=== PATIENT | female | born 1970 | race American Indian/Alaskan Native ===

== ENCOUNTER 2018-12-19 06:19 | Inpatient (IN) | payer OTHER, MEDICARE ==
[2018-12-19 06:23] VITALS: BMI 25.6
--- NOTE | 2018-12-19 06:26 | ED PDOC ---
Psych Transfer Clearance - Clearance Statement Clearance Statement: Reviewed vital signs, lab results and transfer papers. Patient clinically stable for psychiatric admission. Medically cleared by Dr. Noriega
[2018-12-19] MEDS ORDERED: DiphenhydrAMINE 50 mg/ml Inj IM PRN (07:03)
[2018-12-19] MEDS ORDERED: Magnesium Hydroxide Susp 30 ml UD PO PRN (07:03)
[2018-12-19] MEDS ORDERED: Alum-Mag Hydrox-Simethicone Susp (30 mL) PO PRN (07:03)
--- NOTE | 2018-12-19 11:26 | PCM.PSYCH ---
Initial Psychiatric Evaluation - Initial Psychiatric Evaluation Chief Complaint (in patient's own words): pt was feeling overwhelmed related to overall health issues including need for oxygen supplementation, admits although family has not mentioned that she has become a burden for them ( and two children) pt was feeling like she wanted to take her life. pt was being treated by psychiatrist in [facility] (?affiliated with [facility]). reports has been taking medications and has not missed. denies acute changes in health. reports positive rapport with and children. pt although dose not offer a specific plan for taking her life she cannot contract for safety. pt remains on 1 to 1 for safety. Patient's Reaction to Hospitalization: pt signed for transfer to [facility] from [facility] History of Present Illness and Precipitating Events: chronic health issues reported concerns about becoming a burden to others because of her health (although she denies being told or hearing this from others). Current Medications: Active Medications Generic Name Dose Route Start Last Admin Trade Name Freq PRN Reason Stop Dose Admin Acetaminophen 650 mg 12/19/18 07:03 Tylenol 325mg Tab PO Q4 PRN Pain, moderate (4-7) Al Hydrox/Mg Hydrox/Simethicone 30 ml 12/19/18 07:03 Maalox Plus 30 Ml PO Q4 PRN Dyspepsia Diphenhydramine HCl 50 mg 12/19/18 07:03 Benadryl IM Q6 PRN Extrapyramidal S/S Unable PO Diphenhydramine HCl 50 mg 12/19/18 07:03 Benadryl PO Q6 PRN Extrapyramidal Symptoms Diphenhydramine HCl 50 mg 12/19/18 07:03 Benadryl PO HS PRN Sleep Haloperidol 5 mg 12/19/18 07:03 Haldol PO Q4 PRN Agitation Haloperidol Lactate 5 mg 12/19/18 07:03 Haldol IM Q4 PRN Agitation, Unable to Take PO Lorazepam 2 mg 12/19/18 10:00 Ativan IM Q6 PAULINO Lorazepam 1 mg 12/19/18 07:03 Ativan PO Q6 PRN Anxiety/Agitation Magnesium Hydroxide 30 ml 12/19/18 07:03 Milk Of Magnesia PO HS PRN Constipation Past Psychiatric History - Past Psychiatric History Prior Professional Help: [facility], opd, [facility] Nature of Treatment: inpt opd pmd History of Abuse: denies History of ETOH/Drug Use: denies History of Family Illness: defers Pertinent Medical Hx (Current Medical&Sleep Prob, Allergies): Allergies Allergy/AdvReac Type Severity Reaction Status Date / Time No Known Allergies Allergy Verified 12/19/18 06:22 Review of Systems - Respiratory Additional comments: chronic sob, supplemental O2 via nasal cannula - Psychiatric Psychiatric: Abnormal Sleep Pattern, Depression, Hopelessness, Suicidal Ideation Additional comments: does not contract for safety no specific plan Mental Status Examination - Personal Presentation Personal Presentation: Looks older than stated age - Affect Affect: Constricted, Depressed - Motor Activity Motor Activity: Calm, Psychomotor Retardation - Reliability in Providing Information Reliability in Providing Information: Fair - Speech Speech: Organized - Mood Additional comments: some accessory muscle use noted with speech - Formal Thought Process Formal Thought Process: No Impairment - Obsessions/Compulsions Obsessions: No Compulsions: No - Cognitive Functions Orientation: Person, Place, Situation, Time Sensorium: Alert Judgement: Imparied, as evidence by: Other - Risk Risk: Suicidal, Diminished functioning - Strength & Assets Inventory Strength & Assets Inventory: Intelligence, Family support (chronic health issues), Cooperative DSM 5 DX - DSM 5 DSM 5 Diagnosis: 

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
[2018-12-19] MEDS: Budesonide 0.5 mg/2 ml Inhal Susp UD IH SCH ×2 (16:11→21:25)
[2018-12-19] MEDS: Albuterol 0.042% Inhal Sol (1.25 mg/3 mL) UD IH SCH ×2 (16:11→21:24)
--- NOTE | 2018-12-19 17:50 | PCM.BM ---
<Marbella Billy - Last Filed: 12/19/18 17:53> Treatment Plan Problems - Problems identified on initial assessmt hopelessness/helplessness Date Initiated: 12/19/18 Time Initiated: 17:48 Date resolved: 12/26/18 Assessment reference: NA Status: Active Priority: 1 activity intolerance Date Initiated: 12/19/18 Time Initiated: 17:49 Date resolved: 12/26/18 Assessment reference: NA Status: Active feeling of worthlessness Date Initiated: 12/19/18 Time Initiated: 17:50 Date resolved: 12/26/18 alteration in resp status Date Initiated: 12/19/18 Time Initiated: 17:52 Assessment reference: NA Status: Monitor Treatment assets and liabiliti Patient Assests: adapts well, cooperative, negotiates basic needs Patient Liabilities: poor support system, medical problems - Milieu Protocol Maintain good personal hygiene: every shift Encourage regular showers, every shift Remind patient to perform daily oral care, every shift Assist patient to p erform ADL's Maintain personal safety: every shift Educate patient to report safety concerns to staff, every shift Monitor environment for contraband/sharps Medication safety: Monitor for expected outcome, potential side effects: every shift, Assess barriers to learning: every shift, Assess readiness for medication education: every shift Milieu Narrative: admission per attending md vital signs and clinical assessment per unit protocol and per clinical status 1 to 1 for safety hospitalist consult prns per unit protocol falls precautions physical therapy evaluation and treatment dietary consult discharge planning in progress Discharge/Continuing Care - Treatment Team Participation Patient/Family/SO Statement: admission per attending md vital signs and clinical assessment per unit protocol and per clinical status 1 to 1 for safety hospitalist consult prns per unit protocol falls precautions physical therapy evaluation and treatment dietary consult discharge planning in progress <April Fowler - Last Filed: 12/21/18 10:21> - Diagnosis (1) Major depressive disorder Status: Acute Interventions: Medication management, Individual and group therapy, Psychoeducation 12/21/18 10:21 <Jo Ann Lipscomb - Last Filed: 12/21/18 15:25> Family Contact Family involvement: Family/SO is involved Family contact: Patient agrees to contact, Family has been contacted by patient, Telephone contact initiated by staff Family contact name: Jose Gonzáles - ([phone]) Family contacted how many times per week?: 2 - Outside Agency Nirav Lagos MD Care involvment: Information-sharing Agency contact number: [phone] - Goals for Treatment Patient goals for treatment: Pt will improve mood. Pt will be free of suicide ideation and thoughts. Pt will comply with prescribed medications. Pt will attend clinical and activity groups. Pt will improve coping skills to better co pe with daily stressors. Pt will report less depression and anxiety. Pt will comply with medical treatment. Discharge/Continuing Care - Education Needs Education Needs: Family Medication, Family Diagnosis/Disease Process, Family Community resources, Family Aftercare Safety Plan, Patient Medication, Patient Diagnosis/Disease Process, Patient Coping Skills, Patient Community resources, Patient Uses of Medical Equipment, Patient Health Practices/Safety, Patient Personal Hygiene/Grooming, Patient Aftercare Safety Plan - Discharge Discharge Criteria: Tolerates medication w/o severe side effects, Free of Suicidal thoughts, Free of paranoid thoughts, Normal sleep pattern, Ability to care for self, Reduction of target symptoms Discharge to:: Home, With Family - Additional Comments 12/21/18 15:14 Pt seen and discussed in team meeting. Reason for hospitalization reviewed and discussed. Pt reported being hospitalized due to worsening depression and suicide ideation in the context of several stressors. Pt reported having marital issues and several medical issues contributing to her increased depression. Pt also reported medication non-compliance with her Celexa. Pt reported that she is linked to Dr. Demond MD at [facility] for [facility]. Pt reported her depression began in July 2018 following medical issues and complications. Pt's social and medical issues reviewed and discussed. Pt's medications reviewed and discussed. Pt's tx plan reviewed and discussed. Pt provided clinical writer with verbal and written to contact her , Jose Gonzáles ([phone]) to confirm that he is caring for pt's twins, Paula Johnson. Pt will remain on a 1:1 for suicide ideation. Pt unable to contract for safety. During team meeting, pt was observed trying to turn off her oxygen. RN reported that she will be contacting pt's pharmacy in [place] to confirm medications. SW will continue to follow case. - Treatment Team Participation Discussed with Family/SO: No Was Patient/Family/SO present at Treatment Team Meeting: Yes
[2018-12-19 20:36] LABS: SQUAMOUS EPITHIAL 2 /hpf (0-5); URINE BACTERIA RARE (<OCC); URINE BILIRUBIN NEGATIVE (NEGATIVE); URINE BLOOD NEGATIVE (NEGATIVE); URINE CLARITY CLEAR (Clear); URINE COLOR STRAW (YELLOW); URINE GLUCOSE (UA) NEG (NEGATIVE); URINE LEUKOCYTE ESTERASE NEG Leu/uL (Negative); URINE PROTEIN NEGATIVE (NEGATIVE); URINE UROBILINOGEN 0.2-1.0 mg/dL (0.2-1.0)
[2018-12-20 07:26] LABS: BASO % 0.2 % (0.0-2.0); EOS % 0.2 % (0.0-4.0); HEMOGLOBIN 11.1 g/dL (12.0-16.0); LYMPH # 1.2 K/uL (1.0-4.3); LYMPH % 14.4 % (20.0-40.0); MEAN CELL VOLUME 81.3 fl (81.0-99.0); MEAN CORPUSCULAR HEMOGLOBIN 25.9 pg (27.0-31.0); MEAN CORPUSCULAR HGB CONC 31.8 g/dL (33.0-37.0); MEAN PLATELET VOLUME 9.2 fl (7.2-11.7); MONO # 0.4 K/uL (0.0-0.8); MONO % 4.1 % (0.0-10.0); NEUT # 6.9 K/uL (1.8-7.0); NEUT % 81.1 % (50.0-75.0); RBC 4.29 Mil/uL (3.80-5.20); RED CELL DISTRIBUTION WIDTH 17.1 % (11.5-14.5); WHITE BLOOD COUNT 8.5 K/uL (4.8-10.8)
[2018-12-20] MEDS: Budesonide 0.5 mg/2 ml Inhal Susp UD IH SCH ×3 (07:42→19:21)
[2018-12-20] MEDS: Albuterol 0.042% Inhal Sol (1.25 mg/3 mL) UD IH SCH ×4 (07:42→19:21)
[2018-12-20 08:03] LABS: ALBUMIN 3.6 g/dL (3.5-5.0); ALT/SGPT 43 U/L (9-52); AST/SGOT 34 U/L (14-36); BLOOD UREA NITROGEN 10 mg/dl (7-17); CALCIUM 8.8 mg/dL (8.4-10.2); GFR NON-AFRICAN AMERICAN > 60; HDL CHOLESTEROL 31 MG/DL (30-70)
[2018-12-20 08:13] LABS: LDL CHOLESTEROL 118 mg/dL (0-129)
[2018-12-20] MEDS: Pantoprazole 40 mg EC Tab PO SCH (08:44)
[2018-12-20 20:16] LABS: RAPID PLASMA REAGIN REACTIVE (NONREACTIVE)
[2018-12-20] MEDS: Benzocaine/Menthol (Cepacol) Lozenge PO PRN (22:10)
[2018-12-21] MEDS: Albuterol-Ipratrop 3 mg / 0.5 (3 ml) UD INH PRN (03:26)
[2018-12-21 05:59] VITALS: O2SAT 97
[2018-12-21] MEDS: Benzocaine/Menthol (Cepacol) Lozenge PO PRN ×2 (08:51→17:53)
[2018-12-21] MEDS: Pantoprazole 40 mg EC Tab PO SCH (08:52)
[2018-12-21] MEDS: Albuterol 0.042% Inhal Sol (1.25 mg/3 mL) UD IH SCH ×3 (09:39→20:46)
[2018-12-21] MEDS: Budesonide 0.5 mg/2 ml Inhal Susp UD IH SCH ×2 (09:44→20:46)
--- NOTE | 2018-12-21 10:22 | PCM.PYCHPN ---
Psychiatric Progress Note - Psychiatric Progress Note Patient seen today, length of contact: Pt evaluated, case discussed w/ team, chart reviewed Patient Chief Complaint: Depression Problems Identified/Issues Discussed: Patient continues to feel depressed, anxious and discussed her distress over her many medical issues and also problems in her marriage. +Poor sleep/appetite. +Hopelessness. She reports that she was having suicidal thoughts yesterday, but states that she has less suicidal thoughts today. She reports that was taking Celexa, but stopped taking it 1 week ago. She is agreeable to restarting Celexa at this time. Medication Change: Yes (Restart Celexa) Medical Record Reviewed: Yes Consults ordered or reviewed: Medicine consult Mental Status Examination - Cognitive Function Orientation: Person, Place, Situation, Time Memory: Intact Attention: WNL Concentration: WNL Association: WNL Fund of Knowledge: [facility] Decription of patient's judgement and insights: Fair I/J - Mood Mood: Depressed, Anxious - Affect Affect: Constricted, Depressed - Speech Speech: Soft - Formal Thought Process Formal Thought Process: No Impairment Psychotic Thoughts and Behaviors: No AH/VH; reports some mild suspiciousness but does not seem to have overt paranoia - Suicidal Ideation Suicidal Ideation: Yes Plan: Intermittent SI - Homicidal Ideation Homicidal Ideation: No Goal/Treatment Plan - Goal/Treatment Plan Need for Continued Stay: Remain at risks for inpatient hospitalization, Severe depression anxiety, Discharge may exacerbated symptoms Progress Toward Problem(s) and Goals/Treatment Plan: Major Depressive Disorder -Restart Celexa -Continue 1:1 for safety -Medicine consult -Individual and group therapy -Psychoeducation -Disposition planning Estimated Date of D/C: 12/25/18 - Smoking Cessation Smoking Cessation Initiated: No Reason for not providing: Not indicated
[2018-12-22] MEDS: Benzocaine/Menthol (Cepacol) Lozenge PO PRN (00:07)
[2018-12-22] MEDS: Albuterol-Ipratrop 3 mg / 0.5 (3 ml) UD INH PRN ×2 (05:46→08:04)
[2018-12-22] MEDS: Albuterol 0.042% Inhal Sol (1.25 mg/3 mL) UD IH SCH ×3 (08:00→19:32)
[2018-12-22] MEDS: Budesonide 0.5 mg/2 ml Inhal Susp UD IH SCH ×2 (08:04→19:32)
[2018-12-22] MEDS: Pantoprazole 40 mg EC Tab PO SCH (09:11)
--- NOTE | 2018-12-22 12:10 | PCM.PYCHPN ---
Psychiatric Progress Note - Psychiatric Progress Note Patient seen today, length of contact: Pt evaluated, case discussed w/ team, chart reviewed Patient Chief Complaint: Depression Problems Identified/Issues Discussed: Patient was acutely agitated last night. She was anxious, labile, yelling "help" and "don't do this to me", paranoid, aggressive and required PRN medidcation for agitation. Patient continues to be bizarre and paranoid. Medication Change: Yes (Start Risperdal) Medical Record Reviewed: Yes Consults ordered or reviewed: Medicine consult Mental Status Examination - Cognitive Function Orientation: Person, Place, Situation, Time Memory: Intact Attention: WNL Concentration: WNL Association: WNL Fund of Knowledge: [facility] Decription of patient's judgement and insights: Fair I/J - Mood Mood: Depressed, Anxious - Affect Affect: Constricted, Depressed - Speech Speech: Soft - Formal Thought Process Formal Thought Process: Paranoia Psychotic Thoughts and Behaviors: No AH/VH; +Paranoia - Suicidal Ideation Suicidal Ideation: Yes - Homicidal Ideation Homicidal Ideation: No Goal/Treatment Plan - Goal/Treatment Plan Need for Continued Stay: Remain at risks for inpatient hospitalization, Severe depression anxiety, Discharge may exacerbated symptoms Progress Toward Problem(s) and Goals/Treatment Plan: Major Depressive Disorder w/ Psychotic Features -Continue Celexa -Start Risperdal -Continue 1:1 for safety -Medicine consult -Individual and group therapy -Psychoeducation -Disposition planning
[2018-12-22] MEDS: Risperidone M tab 1 MG PO SCH (21:09)
[2018-12-23] MEDS: Albuterol-Ipratrop 3 mg / 0.5 (3 ml) UD INH PRN ×2 (05:12→17:55)
[2018-12-23] MEDS: Pantoprazole 40 mg EC Tab PO SCH (08:31)
[2018-12-23] MEDS: Risperidone M tab 1 MG PO SCH ×2 (08:31→21:02)
[2018-12-23] MEDS: Budesonide 0.5 mg/2 ml Inhal Susp UD IH SCH ×3 (08:48→20:44)
[2018-12-23] MEDS: Albuterol 0.042% Inhal Sol (1.25 mg/3 mL) UD IH SCH ×3 (08:48→20:44)
--- NOTE | 2018-12-23 12:19 | PCM.PYCHPN ---
Psychiatric Progress Note - Psychiatric Progress Note Patient seen today, length of contact: Pt evaluated, case discussed w/ team, chart reviewed Patient Chief Complaint: Depression Problems Identified/Issues Discussed: Patient continues to report feeling depressed. She is guarded and paranoid. She gives vague answers, but does not feel like she is currently safe. She denies acute AH/VH/SI/HI. She is oddly related at times and observed starting blankly by staff. Medication Change: Yes (Increase Risperda) Medical Record Reviewed: Yes Consults ordered or reviewed: Medicine consult Mental Status Examination - Cognitive Function Orientation: Person, Place, Situation, Time Memory: Intact Attention: WNL Concentration: WNL Association: WNL Fund of Knowledge: [facility] Decription of patient's judgement and insights: Fair I/J - Mood Mood: Depressed, Anxious - Affect Affect: Constricted, Depressed - Speech Speech: Soft - Formal Thought Process Formal Thought Process: Paranoia Psychotic Thoughts and Behaviors: No AH/VH; +Paranoia - Suicidal Ideation Suicidal Ideation: No - Homicidal Ideation Homicidal Ideation: No Goal/Treatment Plan - Goal/Treatment Plan Need for Continued Stay: Remain at risks for inpatient hospitalization, Severe depression anxiety, Discharge may exacerbated symptoms Progress Toward Problem(s) and Goals/Treatment Plan: Major Depressive Disorder w/ Psychotic Features -Continue Celexa -Increase Risperdal -Continue 1:1 for safety -Medicine consult -Individual and group therapy -Psychoeducation -Disposition planning
[2018-12-23] MEDS: Benzocaine/Menthol (Cepacol) Lozenge PO PRN (17:17)
--- NOTE | 2018-12-23 18:27 | CP.PCM.PN ---
Subjective - Date & Time of Evaluation Date of Evaluation: 12/23/18 Time of Evaluation: 18:20 - Subjective Subjective: Patient was seen and examined. RPR was reactive 1:4 and FTA-ABS was positive. Patient confirmed that she was treated with 12 shots of Penicillin in late . She denied any complaint. Objective - Vital Signs/Intake and Output Vital Signs (last 24 hours): Temp Pulse Resp BP Pulse Ox 97.6 F 86 20 131/67 97 12/23/18 17:07 12/23/18 17:07 12/23/18 17:07 12/23/18 17:07 12/21/18 05:58 - Medications Medications: Current Medications Acetaminophen (Tylenol 325mg Tab) 650 mg PO Q4 PRN PRN Reason: Pain, moderate (4-7) Al Hydrox/Mg Hydrox/Simethicone (Maalox Plus 30 Ml) 30 ml PO Q4 PRN PRN Reason: Dyspepsia Albuterol Sulfate (Albuterol 0.042% Inhal Gloria (1.25mg/3ml) Ud) 1.25 mg IH RTID [facility] Last Admin: 12/23/18 13:35 Dose: 1.25 mg Albuterol/Ipratropium (Duoneb 3 Mg/0.5 Mg (3 Ml) Ud) 3 ml INH RQ4 PRN PRN Reason: Shortness of Breath Last Admin: 12/23/18 17:55 Dose: 3 ml Benzocaine/Menthol (Cepacol Sore Throat) 1 gutierrez PO Q2 PRN PRN Reason: Sore Throat Last Admin: 12/23/18 17:17 Dose: 1 gutierrez Budesonide (Pulmicort Respules) 0.5 mg IH RBID [facility] Last Admin: 12/23/18 17:59 Dose: 0.5 mg Citalopram Hydrobromide (Celexa) 20 mg PO DAILY [facility] Last Admin: 12/23/18 08:31 Dose: 20 mg Diphenhydramine HCl (Benadryl) 50 mg IM Q6 PRN PRN Reason: Extrapyramidal S/S Unable PO Last Admin: 12/22/18 01:40 Dose: 50 mg Diphenhydramine HCl (Benadryl) 50 mg PO Q6 PRN PRN Reason: Extrapyramidal Symptoms Diphenhydramine HCl (Benadryl) 50 mg PO HS PRN PRN Reason: Sleep Haloperidol (Haldol) 5 mg PO Q4 PRN PRN Reason: Agitation Haloperidol Lactate (Haldol) 5 mg IM Q4 PRN PRN Reason: Agitation, Unable to Take PO Last Admin: 12/22/18 01:40 Dose: 5 mg Lorazepam (Ativan) 1 mg PO Q6 PRN PRN Reason: Anxiety/Agitation Magnesium Hydroxide (Milk Of Magnesia) 30 ml PO HS PRN PRN Reason: Constipation Metformin HCl (Glucophage) 500 mg PO BID [facility] Last Admin: 12/23/18 17:16 Dose: 500 mg Pantoprazole Sodium (Protonix Ec Tab) 40 mg PO DAILY [facility] Last Admin: 12/23/18 08:31 Dose: 40 mg Prednisone (Prednisone Tab) 10 mg PO BID [facility] Last Admin: 12/23/18 17:16 Dose: 10 mg Risperidone (Risperdal M-Tab) 1 mg PO Q12 [facility] Last Admin: 12/23/18 08:31 Dose: 1 mg - Labs Labs: 12/20/18 06:48 12/20/18 06:48 Assessment and Plan - Assessment and Plan (Free Text) Assessment: Patient was completely treated for syphilis in . No further treatment necessary. Discussed case with Dr Grajeda.
[2018-12-24] MEDS: Albuterol 0.042% Inhal Sol (1.25 mg/3 mL) UD IH SCH ×3 (09:27→20:19)
[2018-12-24] MEDS: Budesonide 0.5 mg/2 ml Inhal Susp UD IH SCH ×2 (09:27→20:19)
[2018-12-24] MEDS: Risperidone M tab 1 MG PO SCH ×2 (09:40→21:24)
[2018-12-24] MEDS: Pantoprazole 40 mg EC Tab PO SCH (09:41)
--- NOTE | 2018-12-24 10:56 | PCM.PYCHPN ---
Psychiatric Progress Note - Psychiatric Progress Note Patient seen today, length of contact: Pt evaluated, case discussed w/ team, chart reviewed Patient Chief Complaint: Depression Problems Identified/Issues Discussed: Patient continues to report feeling depressed, hopeless, with continued suicidal ideation with plan to overdose on pills. She is vague and guarded at times. When asked if she would try to harm herself on the unit, she states that she does not know because she does not know how she could kill herself here. She continues to report that she does not know if she is safe in the hospital. Medication Change: No Medical Record Reviewed: Yes Consults ordered or reviewed: Medicine consult Mental Status Examination - Cognitive Function Orientation: Person, Place, Situation, Time Memory: Intact Attention: WNL Concentration: WNL Association: WNL Fund of Knowledge: [facility] Decription of patient's judgement and insights: Fair I/J - Mood Mood: Depressed, Anxious - Affect Affect: Constricted, Depressed - Speech Speech: Soft - Formal Thought Process Formal Thought Process: Paranoia Psychotic Thoughts and Behaviors: No AH/VH; +Paranoia - Suicidal Ideation Suicidal Ideation: Yes - Homicidal Ideation Homicidal Ideation: No Goal/Treatment Plan - Goal/Treatment Plan Need for Continued Stay: Remain at risks for inpatient hospitalization, Severe depression anxiety, Discharge may exacerbated symptoms Progress Toward Problem(s) and Goals/Treatment Plan: Major Depressive Disorder w/ Psychotic Features -Continue Celexa -Continue Risperdal -Continue 1:1 for safety -Medicine consult -Individual and group therapy -Psychoeducation -Disposition planning Estimated Date of D/C: 12/30/18
[2018-12-24] MEDS: Benzocaine/Menthol (Cepacol) Lozenge PO PRN (21:24)
[2018-12-25] MEDS: Albuterol-Ipratrop 3 mg / 0.5 (3 ml) UD INH PRN ×2 (00:59→20:15)
[2018-12-25] MEDS: Pantoprazole 40 mg EC Tab PO SCH (08:35)
[2018-12-25] MEDS: Risperidone M tab 1 MG PO SCH ×2 (08:36→21:27)
--- NOTE | 2018-12-25 08:52 | PCM.PYCHPN ---
Psychiatric Progress Note - Psychiatric Progress Note Patient seen today, length of contact: Pt evaluated, case discussed w/ team, chart reviewed Patient Chief Complaint: Depression Problems Identified/Issues Discussed: Patient continues to report feeling depressed and anxious. She denies acute suicidal ideation/plan/intent and is able to contract for safety at this time. She denies acute concerns that she is not safe; denies acute paranoia. We discussed continued titration of Celexa back to her previous dose. Medication Change: Yes (Increase Celexa) Medical Record Reviewed: Yes Consults ordered or reviewed: Medicine consult Mental Status Examination - Cognitive Function Orientation: Person, Place, Situation, Time Memory: Intact Attention: WNL Concentration: WNL Association: WNL Fund of Knowledge: [facility] Decription of patient's judgement and insights: Fair I/J - Mood Mood: Depressed, Anxious - Affect Affect: Constricted, Depressed - Speech Speech: Soft - Formal Thought Process Formal Thought Process: Circumstantial Psychotic Thoughts and Behaviors: No AH/VH; Denies acute paranoia, but patient continues to be guarded - Suicidal Ideation Suicidal Ideation: No - Homicidal Ideation Homicidal Ideation: No Goal/Treatment Plan - Goal/Treatment Plan Need for Continued Stay: Remain at risks for inpatient hospitalization, Severe depression anxiety, Discharge may exacerbated symptoms Progress Toward Problem(s) and Goals/Treatment Plan: Major Depressive Disorder w/ Psychotic Features -Continue Celexa -Continue Risperdal -Discontinue 1:1 -Medicine consult -Individual and group therapy -Psychoeducation -Disposition planning Estimated Date of D/C: 12/30/18
[2018-12-25] MEDS: Albuterol 0.042% Inhal Sol (1.25 mg/3 mL) UD IH SCH ×3 (09:57→20:14)
[2018-12-25] MEDS: Budesonide 0.5 mg/2 ml Inhal Susp UD IH SCH (09:58)
[2018-12-26] MEDS: Albuterol-Ipratrop 3 mg / 0.5 (3 ml) UD INH PRN (02:31)
[2018-12-26] MEDS: Benzocaine/Menthol (Cepacol) Lozenge PO PRN (04:13)
[2018-12-26] MEDS: Risperidone M tab 1 MG PO SCH ×2 (08:26→21:03)
[2018-12-26] MEDS: guaiFENesin-DM 600-30 mg ER Tab PO SCH ×2 (08:26→16:52)
[2018-12-26] MEDS: Pantoprazole 40 mg EC Tab PO SCH (08:27)
[2018-12-26] MEDS: Albuterol 0.042% Inhal Sol (1.25 mg/3 mL) UD IH SCH ×3 (09:03→20:44)
[2018-12-26] MEDS: Budesonide 0.5 mg/2 ml Inhal Susp UD IH SCH ×3 (09:03→20:44)
--- NOTE | 2018-12-26 14:21 | PCM.PYCHPN ---
Psychiatric Progress Note - Psychiatric Progress Note Patient seen today, length of contact: Pt evaluated, case discussed w/ team, chart reviewed Patient Chief Complaint: I still feel depressed Problems Identified/Issues Discussed: pt seen in bed presenting with depressed mood and affect, no reported side effects with the increase in celexa, denied suicidal or homicidal ideation, denied perceptual disturbances Medication Change: Yes (Increase Celexa) Medical Record Reviewed: Yes Mental Status Examination - Cognitive Function Orientation: Person, Place, Situation, Time Memory: Intact Attention: WNL Concentration: WNL Association: WNL Fund of Knowledge: WNL - Mood Mood: Depressed, Anxious - Affect Affect: Constricted, Depressed - Speech Speech: Soft - Formal Thought Process Formal Thought Process: Circumstantial - Suicidal Ideation Suicidal Ideation: No - Homicidal Ideation Homicidal Ideation: No Goal/Treatment Plan - Goal/Treatment Plan Need for Continued Stay: Remain at risks for inpatient hospitalization, Severe depression anxiety, Discharge may exacerbated symptoms Progress Toward Problem(s) and Goals/Treatment Plan: continue current management Estimated Date of D/C: 12/30/18
[2018-12-27] MEDS: Albuterol 0.042% Inhal Sol (1.25 mg/3 mL) UD IH SCH ×3 (08:30→19:42)
[2018-12-27] MEDS: Budesonide 0.5 mg/2 ml Inhal Susp UD IH SCH ×2 (08:30→19:42)
[2018-12-27] MEDS: guaiFENesin-DM 600-30 mg ER Tab PO SCH ×2 (09:06→17:41)
[2018-12-27] MEDS: Insulin Regular 100 units/ml SC SCH ×2 (09:06→17:42)
[2018-12-27] MEDS: Pantoprazole 40 mg EC Tab PO SCH (09:07)
[2018-12-27] MEDS: Risperidone M tab 1 MG PO SCH ×2 (09:08→21:41)
--- NOTE | 2018-12-27 11:40 | PCM.PYCHPN ---
Psychiatric Progress Note - Psychiatric Progress Note Patient seen today, length of contact: Pt evaluated, case discussed w/ team, chart reviewed Patient Chief Complaint: I did not sleep well Problems Identified/Issues Discussed: pt evaluated seen in bed reported early insomnia last night presenting with depressed mood and affect, no reported side effects with the increase in celexa, denied suicidal or homicidal ideation, denied perceptual disturbances Medication Change: No Medical Record Reviewed: Yes Mental Status Examination - Cognitive Function Orientation: Person, Place, Situation, Time Memory: Intact Attention: WNL Concentration: WNL Association: WNL Fund of Knowledge: WNL - Mood Mood: Depressed, Anxious - Affect Affect: Constricted, Depressed - Speech Speech: Soft - Formal Thought Process Formal Thought Process: Circumstantial - Suicidal Ideation Suicidal Ideation: No - Homicidal Ideation Homicidal Ideation: No Goal/Treatment Plan - Goal/Treatment Plan Need for Continued Stay: Remain at risks for inpatient hospitalization, Severe depression anxiety, Discharge may exacerbated symptoms Progress Toward Problem(s) and Goals/Treatment Plan: continue current management Estimated Date of D/C: 12/30/18
[2018-12-27] MEDS: Benzocaine/Menthol (Cepacol) Lozenge PO PRN (22:35)
[2018-12-28] MEDS: Albuterol-Ipratrop 3 mg / 0.5 (3 ml) UD INH PRN (07:42)
[2018-12-28] MEDS: Budesonide 0.5 mg/2 ml Inhal Susp UD IH SCH ×2 (07:42→19:40)
[2018-12-28] MEDS: Albuterol 0.042% Inhal Sol (1.25 mg/3 mL) UD IH SCH ×3 (07:45→19:40)
[2018-12-28] MEDS: Insulin Regular 100 units/ml SC SCH ×3 (09:01→17:24)
[2018-12-28] MEDS: Risperidone M tab 1 MG PO SCH ×2 (09:08→21:28)
[2018-12-28] MEDS: Pantoprazole 40 mg EC Tab PO SCH (09:08)
--- NOTE | 2018-12-28 12:12 | PCM.PYCHPN ---
Psychiatric Progress Note - Psychiatric Progress Note Patient seen today, length of contact: Pt evaluated, case discussed w/ team, chart reviewed Patient Chief Complaint: I still have trouble sleeping Problems Identified/Issues Discussed: pt evaluated seen in bed continues to report depressed mood and early insomnia, constricted depressed affect, p at current time declining any further increase in medications, denied suicidal or homicidal ideation, denied perceptual disturbances Medication Change: No Medical Record Reviewed: Yes Mental Status Examination - Cognitive Function Orientation: Person, Place, Situation, Time Memory: Intact Attention: WNL Concentration: WNL Association: WNL Fund of Knowledge: WNL - Mood Mood: Depressed, Anxious - Affect Affect: Constricted, Depressed - Speech Speech: Soft - Formal Thought Process Formal Thought Process: Circumstantial - Suicidal Ideation Suicidal Ideation: No - Homicidal Ideation Homicidal Ideation: No Goal/Treatment Plan - Goal/Treatment Plan Need for Continued Stay: Remain at risks for inpatient hospitalization, Severe depression anxiety, Discharge may exacerbated symptoms Progress Toward Problem(s) and Goals/Treatment Plan: continue current management Estimated Date of D/C: 12/30/18
[2018-12-29] MEDS: Risperidone M tab 1 MG PO SCH ×2 (08:43→21:00)
[2018-12-29] MEDS: Insulin Regular 100 units/ml SC SCH ×2 (08:44→17:55)
[2018-12-29] MEDS: Pantoprazole 40 mg EC Tab PO SCH (08:45)
[2018-12-29] MEDS: Budesonide 0.5 mg/2 ml Inhal Susp UD IH SCH ×2 (09:59→21:07)
[2018-12-29] MEDS: Albuterol 0.042% Inhal Sol (1.25 mg/3 mL) UD IH SCH ×3 (09:59→21:07)
--- NOTE | 2018-12-29 11:01 | PCM.PYCHPN ---
Psychiatric Progress Note - Psychiatric Progress Note Patient seen today, length of contact: Pt evaluated, case discussed w/ team, chart reviewed Patient Chief Complaint: Depression Problems Identified/Issues Discussed: Patient continues to report feeling depressed, but states that her mood has been improving. She denies acute psychosis/paranoia/SI/HI. We discussed coping strategies to deal with stress and depression. No adverse effects to medications reported. Medication Change: No Medical Record Reviewed: Yes Consults ordered or reviewed: Medicine consult Mental Status Examination - Cognitive Function Orientation: Person, Place, Situation, Time Memory: Intact Attention: WNL Concentration: WNL Association: WNL Fund of Knowledge: [facility] Decription of patient's judgement and insights: Fair I/J - Mood Mood: Depressed - Affect Affect: Constricted - Speech Speech: Soft - Formal Thought Process Formal Thought Process: No Impairment Psychotic Thoughts and Behaviors: NO AH/VH/paranoia - Suicidal Ideation Suicidal Ideation: No - Homicidal Ideation Homicidal Ideation: No Goal/Treatment Plan - Goal/Treatment Plan Need for Continued Stay: Severe depression anxiety Progress Toward Problem(s) and Goals/Treatment Plan: Major Depressive Disorder w/ Psychotic Features -Continue Celexa -Continue Risperdal -Disposition planning- likely discharge to home tomorrow as she is improving clinically Estimated Date of D/C: 12/30/18
[2018-12-30 05:52] VITALS: BP 114/68; PULSE 73; RESP 18; TEMP 98.4
[2018-12-30] MEDS: Albuterol 0.042% Inhal Sol (1.25 mg/3 mL) UD IH SCH (07:55)
--- NOTE | 2018-12-30 08:22 | PCM.BM ---
Treatment Plan Problems - Problems identified on initial assessmt hopelessness/helplessness Date Initiated: 12/19/18 Time Initiated: 17:48 Date resolved: 12/26/18 Assessment reference: NA Status: Active Priority: 1 activity intolerance Date Initiated: 12/19/18 Time Initiated: 17:49 Date resolved: 12/26/18 Assessment reference: NA Status: Active feeling of worthlessness Date Initiated: 12/19/18 Time Initiated: 17:50 Date resolved: 12/26/18 alteration in resp status Date Initiated: 12/19/18 Time Initiated: 17:52 Assessment reference: NA Status: Monitor Treatment assets and liabiliti Patient Assests: adapts well, cooperative, negotiates basic needs Patient Liabilities: poor support system, medical problems - Milieu Protocol Maintain good personal hygiene: every shift Encourage regular showers, every shift Remind patient to perform daily oral care, every shift Assist patient to perform ADL's Maintain personal safety: every shift Educate patient to report safety concerns to staff, every shift Monitor environment for contraband/sharps Medication safety: Monitor for expected outcome, potential side effects: every shift, Assess barriers to learning: every shift, Assess readiness for medication education: every shift Milieu Narrative: Major Depressive Disorder w/ Psychotic Features -Continue Celexa -Continue Risperdal -Disposition planning- likely discharge to home tomorrow as she is improving clinically Family Contact Family involvement: Family/SO is involved Family contact: Patient agrees to contact, Family has been contacted by patient, Telephone contact initiated by staff Family contact name: Jose Gonzáles (spouse) Family contact comment: Please refer to SW Progress Note dated 12/21/2018 for collateral information. - Outside Agency Nirav Lagos MD Care involvment: Information-sharing Agency contact number: - Goals for Treatment Patient goals for treatment: Pt will improve mood. Pt will be free of suicide ideation and thoughts. Pt will comply with prescribed medications. Pt will attend clinical and activity groups. Pt will improve coping skills to better cope with daily stressors. Pt will report less depression and anxiety. Pt will comply with medical treatment. Discharge/Continuing Care - Education Needs Education Needs: Family Medication, Family Diagnosis/Disease Process, Family Community resources, Family Aftercare Safety Plan, Patient Medication, Patient Diagnosis/Disease Process, Patient Coping Skills, Patient Community resources, Patient Uses of Medical Equipment, Patient Health Practices/Safety, Patient Personal Hygiene/Grooming, Patient Aftercare Safety Plan - Discharge Discharge Criteria: Tolerates medication w/o severe side effects, Free of Suicidal thoughts, Free of paranoid thoughts, Normal sleep pattern, Ability to care for self, Reduction of target symptoms Discharge to:: Home, With Family - Additional Comments 12/21/18 15:14 Pt seen and discussed in team meeting. Reason for hospitalization reviewed and discussed. Pt reported being hospitalized due to worsening depression and suicide ideation in the context of several stressors. Pt reported having marital issues and several medical issues contributing to her increased depression. Pt also reported medication non-compliance with her Celexa. Pt reported that she is linked to Dr. Demond MD at [facility] for psychiatric services. Pt reported her depression began in July 2018 following medical issues and complications. Pt's social and medical issues reviewed and discussed. Pt's medications reviewed and discussed. Pt's tx plan reviewed and discussed. Pt provided continuity writer with verbal and written to contact her , Jose Gonzáles ) to confirm that he is caring for pt's twins, Paula Johnson. Pt will remain on a 1:1 for suicide ideation. Pt unable to contract for safety. During team meeting, pt was observed trying to turn off her oxygen. RN reported that she will be contacting pt's pharmacy in [place] to confirm medications. SW will continue to follow case. - Treatment Team Participation Patient/Family/SO Statement: Major Depressive Disorder w/ Psychotic Features -Continue Celexa -Continue Risperdal -Disposition planning- likely discharge to home tomorrow as she is improving clinically Discussed with Family/SO: No Was Patient/Family/SO present at Treatment Team Meeting: Yes Treatment Plan Review - Problem hopelessness/helplessness Time Initiated: 17:48 activity intolerance Time Initiated: 17:49 feeling of worthlessness Time Initiated: 17:50 alteration in resp status Time Initiated: 17:52 - Discharge / Continuing Care Discharge to:: Home Behavioral Health Services: Outpatient therapy, Home health care Health Needs: Follow up care/test, Doctor appointments, Medications/Rx (Pt seen in treatment team on 12/29/18 for review form 4405 until 1043. Pt presented to team as neat and dressed in hospital gowns with oxygen tank. Pt presented as minimally cooperative and irritable. Pt reported that she was having difficulty "settling down." Pt's medical conditions were discussed and pt reported that she does have a nebulizer at home and does receive oxygen deliveries. Pt asked for help at home and staff reported that she can be set up for home care. 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 Pt reported she resides in [place]. Psychiatric medications of Lexapro, Seroquel and Risperdal were reviewed. Team discussed discharge for 12/30 and pt offered no complaints at this time. Pt reported she does not have family that can pick her up so [facility] will have to provide transportation. Pt's mood and affect were neutral. Pt's voice was soft and slow. Pt's thought process was logical, but minimally goal directed. Pt denied SI/HI, AVT hallucinations and no perceptual disturbances were noted. Pt made appropriate eye contact. Pt is oriented X4. Pt's psychomotor movements were slowed. )
[2018-12-30] MEDS: Insulin Regular 100 units/ml SC SCH (08:35)
[2018-12-30] MEDS: Pantoprazole 40 mg EC Tab PO SCH (08:36)
[2018-12-30] MEDS: Risperidone M tab 1 MG PO SCH (08:38)
--- NOTE | 2018-12-30 09:14 | PCM.PYCHDC ---
Mental Status Examination - Mental Status Examination Orientation: Person, Place, Situation, Time Memory: Intact Mood: Neutral Affect: Broad Speech: Appropriate Attention: WNL Concentration: WNL Association: WNL Fund of Knowledge: WNL Formal Thought Process: No Impairment Description of patient's judgement and insight: Fair I/J Psychotic Thoughts and Behaviors: NO AH/VH/paranoia Suicidal Ideation: No Current Homicidal Ideation?: No Discharge Summary - Discharge Note Reason for Hospitalization: 48 yo female w/ h/o MDD w/ psychosis, admitted w/ worsening depression, anxiety, suicidal ideation and paranoia. Laboratory Data: Abnormal Lab Results 12/29/18 15:59 POC Glucose (mg/dL) 174 H Consultations:: List each consultation separately and include: 1. Reason for request. 2. Findings. 3. Follow-up Consultations: Medicine consult Summary of Hospital Course include:: 1. Description of specific treatment plan utilized for patients during their course of treatmen. 2. Summarize the time- course for resolution of acute symptoms and/or regressed behaviors. 3. Describe issues identified and worked on during hospitalization. 4. Describe medication utilized. 5. Describe medical problems identified and treated. 6. Reassessment of suicide risk Summary of Hospital Course: Patient was admitted to the psychiatry unit. Individual and group therapy were provided. Patient was stabilized on Celexa 40 mg PO Daily and Risperdal 1 mg PO Q12 hr. Patient reports improvement in mood. She denies acute depression/anxiety/AH/VH/paranoia/delusions/SI/HI. No adverse effects to medications reported. Patient is psychiatrically stable for discharge at this time. - Diagnosis (1) Major depressive disorder Current Visit: Yes Status: Acute - Final Diagnosis (DSM 5) Condition upon Discharge: STABLE DSM 5: Major Depressive Disorder w/ Psychotic Features Disposition: HOME/ ROUTINE Follow-up Treatment Plan: Major Depressive Disorder w/ Psychotic Features; patient is psychiatrically stable for discharge with outpatient follow-up. Prescriptions/Medication Reconciliation: Citalopram [celEXA] 40 mg PO DAILY #60 tab Risperidone [Risperdal] 1 mg PO Q12 #60 tablet - Smoking Cessation Smoking Cessation Medication prescribed: No Reason for not providing: Not indicated - Antipsychotic Medications Pt discharged on 2 or more routine antipsychotic medications: No
== END 2018-12-30 13:40 | disposition home or self-care (01) | DRG 885 ==
LOC: H.ER 06:19 → H.STEP 06:24
PROVIDERS: ADMIT Psychiatry & Neurology Psychiatry; ATTEND Psychiatry & Neurology Psychiatry
PROC: GZ51ZZZ Individual Psychotherapy, Behavioral (ICD-10-PCS; principal; 2018-12-19)
PROC: GZHZZZZ Group Psychotherapy (ICD-10-PCS; 2018-12-19)
DX: F32.3 Major depressive disorder, single episode, severe with psychotic features (principal); R45.851 Suicidal ideations; F41.9 Anxiety disorder, unspecified; E10.9 Type 1 diabetes mellitus without complications; M06.9 Rheumatoid arthritis, unspecified; N32.81 Overactive bladder; Z87.01 Personal history of pneumonia (recurrent); Z90.49 Acquired absence of other specified parts of digestive tract; Z90.710 Acquired absence of both cervix and uterus; Z91.14 Patient's other noncompliance with medication regimen; J84.89 Other specified interstitial pulmonary diseases